=== PATIENT | male | born 1995 | race Caucasian/White ===

== ENCOUNTER 2020-03-17 04:36 | Emergency (ER) | payer BC, OTHER ==
[2020-03-17] MEDS ORDERED: ACETAMINOPHEN TAB 500 MG TAB PO STA (04:55)
[2020-03-17] MEDS ORDERED: IBUPROFEN 800 MG TAB PO STA (04:55)
--- NOTE | 2020-03-17 04:56 | ED ---
URI HPI - General Chief Complaint: Upper Respiratory Infection Stated Complaint: Fever Time Seen by Provider: 03/17/20 04:38 Source: patient, RN notes reviewed, old records reviewed Mode of arrival: ambulatory Limitations: no limitations - History of Present Illness Initial Comments: This is a 24-year-old male to the ER for evaluation. Patient presents today for evaluation regarding shortness of breath cough congestion maybe fever. [place] chills. Mild nausea no recent travel history or sick contacts. Upon recollection patient believes he has a friend who is in the hospital but unsure if he has coronavirus are not. Patient is no medical history takes no medications MD Complaint: fever, cough, sore throat, nasal congestion -: days(s) Severity: moderate Severity scale (1-10): 4 Quality: aching Consistency: constant Improves With: nothing Worsens With: nothing Context: sick contacts Associated Symptoms: fever, chills, myalgias Treatments Prior to Arrival: none - Related Data Previous Rx's Medication Instructions Recorded Azithromycin [Zithromax Z-pack (6 0 mg PO DIRECTED #1 pack 03/17/20 tabs)] Allergies Allergy/AdvReac Type Severity Reaction Status Date / Time No Known Allergies Allergy Verified 03/17/20 04:58 Review of Systems ROS Statement: Those systems with pertinent positive or pertinent negative responses have been documented in the HPI. ROS Other: All systems not noted in ROS Statement are negative. Past Medical History Past Medical History: No Reported History History of Any Multi-Drug Resistant Organisms: None Reported Past Surgical History: Appendectomy, Hernia Repair Past Psychological History: Depression Smoking Status: Current every day smoker, Vaper Past Alcohol Use History: None Reported Past Drug Use History: None Reported General Exam Limitations: no limitations General appearance: alert, in no apparent distress Head exam: Present: atraumatic, normocephalic, normal inspection Eye exam: Present: normal appearance, PERRL, EOMI. Absent: scleral icterus, conjunctival injection, periorbital swelling ENT exam: Present: normal exam, mucous membranes moist Neck exam: Present: normal inspection. Absent: tenderness, meningismus, lymphadenopathy Respiratory exam: Present: normal lung sounds bilaterally. Absent: respiratory distress, wheezes, rales, rhonchi, stridor Cardiovascular Exam: Present: normal rhythm, tachycardia, normal heart sounds. Absent: systolic murmur, diastolic murmur, rubs, gallop, clicks GI/Abdominal exam: Present: soft, normal bowel sounds. Absent: distended, tenderness, guarding, rebound, rigid Extremities exam: Present: normal inspection, full ROM, normal capillary refill. Absent: tenderness, pedal edema, joint swelling, calf tenderness Back exam: Present: normal inspection Neurological exam: Present: alert, oriented X3, CN II-XII intact Psychiatric exam: Present: normal affect, normal mood Skin exam: Present: warm, dry, intact, normal color. Absent: rash Course Vital Signs 03/17/20 03/17/20 04:47 04:50 Temperature 98.3 F Pulse Rate 107 H Respiratory 18 108 H Rate Blood Pressure 168/93 O2 Sat by Pulse 98 Oximetry - Reevaluation(s) Reevaluation #1: 03/17/20 04:56 Medical record is reviewed Reevaluation #2: 03/17/20 05:38 Patient is in no distress has no current complaints aside from occasional chills Medical Decision Making - Medical Decision Making 24 male to the ER for evaluation regarding fever, patient has pending coronavirus test and has pneumonia on x-ray - Radiology Data Radiology results: report reviewed (Chest x-rays positive for pneumonia), image reviewed Disposition Clinical Impression: Community acquired pneumonia Narrative: ro COVID Disposition: HOME SELF-CARE Condition: Good Instructions (If sedation given, give patient instructions): Community Acquired Pneumonia (ED) Prescriptions: Azithromycin [Zithromax Z-pack (6 tabs)] 0 mg PO DIRECTED #1 pack Is patient prescribed a controlled substance at d/c from ED?: No Referrals: None,Stated [Primary Care Provider] - 1-2 days
[2020-03-17 05:02] VITALS: TEMP 98.3
--- NOTE | 2020-03-17 05:34 | XR ---
EXAM: XR Chest, 2 Views CLINICAL HISTORY: ITS.REASON XR Reason: cough TECHNIQUE: Frontal and lateral views of the chest. COMPARISON: none available FINDINGS: Lungs: Hazy left lower lobe opacity which may be due to aspiration or infection. No consolidation. Pleural space: Unremarkable. No pneumothorax. Heart: Unremarkable. No cardiomegaly. Mediastinum: Unremarkable. Bones/joints: Unremarkable. IMPRESSION: Hazy left lower lobe opacity which may be due to aspiration or infection.
[2020-03-17] MEDS ORDERED: cefTRIAXone 250 MG VIAL IM STA (05:37)
[2020-03-17] MEDS ORDERED: AZITHROMYCIN 500 MG TAB PO STA (05:37)
[2020-03-17 05:53] VITALS: BP 148/73; PULSE 95; RESP 18
== END 2020-03-17 06:03 | disposition home or self-care (01) ==
LOC: EC 04:36
DX: U07.1 COVID-19 (principal); J12.89 Other viral pneumonia; F17.200 Nicotine dependence, unspecified, uncomplicated
CPT/HCPCS: 71046; 99284; 96372; U0003; J0696